=== PATIENT | female | born 1995 | race African-American/Black ===

== ENCOUNTER 2019-05-11 19:17 | Emergency (ER) | payer MEDICAID ==
[~2019-05-11] VITALS: Ht 152.4 cm; Wt 90.0 kg
[2019-05-11] MEDS ORDERED: IBUPROFEN 600MG TABLET PO ONE (23:30)
[2019-05-11] MEDS ORDERED: TETANUS, DIPHTHERIA, PERTUSSIS VAC/PF 0.5ML (>7YR OLD) IM ONE (23:30)
[2019-05-12 00:55] VITALS: BP 149/78
== END 2019-05-12 00:55 | disposition home or self-care (01) ==
LOC: ER 19:17
DX: S61.552A Open bite of left wrist, initial encounter (principal); W54.0XXA Bitten by dog, initial encounter; Y93.89 Activity, other specified; Y92.018 Other place in single-family (private) house as the place of occurrence of the external cause
CPT/HCPCS: 73110; 90471; 90715; 99283